=== PATIENT | female | born 1985 | race Caucasian/White ===

== ENCOUNTER 2021-04-10 13:09 | Outpatient (CLI) | payer BC, SELFPAY ==
--- NOTE | ~2021-04-10 | MM_ITS ---
EXAMINATION: MM diag chase implant LT w michael HISTORY: Lump in left breast TECHNIQUE: Implant and implant displaced ML, MLO and craniocaudal 3-D tomosynthesis images of the lef t breast were performed and synthetic 2-D images were generated. CAD analysis was submitted and inter preted. COMPARISON: None BREAST PARENCHYMAL COMPOSITION: The breasts are extremely dense, which lowers the sensitivity of mamm ography. FINDINGS: Status post left augmentation mammoplasty. There is dense fibroglandular stroma which may obscure masses. No architectural distortion malignant calcification, skin thickening or retraction is detected. IMPRESSION: 1. Dense stroma, which may obscure masses 2. Left breast ultrasound examination is recommended BI-RADS Category 0: Incomplete: Needs additional imaging evaluation. Reviewed, dictated and finalized at location A.
--- NOTE | ~2021-04-10 | XR_ITS ---
EXAMINATION: XR hip RT min 2V DATE: 04/10/2021 14:45 INDICATION: Right hip pain TECHNIQUE: Two views of right hip were obtained. COMPARISON: None. FINDINGS: Bone alignment is normal. There is no fracture. The soft tissues are unremarkable. IMPRESSION: 1. No acute osseous abnormality. Reviewed, dictated and finalized at location A.
--- NOTE | ~2021-04-10 | US_ITS ---
US breast LT complete DATE: 04/10/2021 15:09 INDICATION: Left breast lump TECHNIQUE: Complete ultrasound imaging of the left breast including all 4 quadrants and subareolar ar ea COMPARISON: 04/10/2021 left diagnostic implant mammogram FINDINGS: No suspicious solid lesion or suspicious shadowing of the left breast. There are multiple benign cysts: 12:00 1 cm from nipple: 26 x 6 x 21 mm sonolucency with through transmission and posterior enhancemen t consistent with simple cyst 12:00 5 cm from nipple: 28 x 9 x 23 mm sonolucency with through transmission and posterior enhancemen t consistent with simple cyst 2:00 6 cm from nipple at area of clinical complaint: 23 x 11 x 20 mm simple cyst 2:00 6 cm from nipple: Contiguous anterior 6 x 4.4 x 6 mm complicated cyst without internal vasculari ty IMPRESSION: BI-RADS Category 2: Benign findings Recommendation: Routine mammographic screening Reviewed, dictated and finalized at Location A. Reviewed, dictated and finalized at location A.
== END 2021-04-10 13:10 | disposition home or self-care (01) ==
PROVIDERS: PCP Internal Medicine; Visit Provider Internal Medicine
DX: N63.20 Unspecified lump in the left breast, unspecified quadrant (principal); M25.551 Pain in right hip
CPT/HCPCS: 73502; 76641; 77061; 77065; G0279

== ENCOUNTER 2021-08-21 12:28 | Outpatient (CLI) | payer BC, SELFPAY ==
--- NOTE | ~2021-08-21 | MMUS_ITS ---
EXAMINATION: MM diag chase implant RT w michael, US breast RT limited HISTORY: Palpable lump in the upper outer quadrant of the right breast TECHNIQUE: Craniocaudal, mediolateral, and mediolateral oblique 3-D tomosynthesis images with implant displacement of the right breast were performed and synthetic 2-D images were generated. Craniocaud al, mediolateral oblique, and mediolateral views of the right breast without implant displacement wer e obtained using full field digital mammography. CAD analysis was submitted and interpreted. High res olution limited right breast ultrasound was performed. COMPARISON: Left breast diagnostic mammogram dated 04/10/2021 BREAST PARENCHYMAL COMPOSITION: The breasts are extremely dense, which lowers the sensitivity of mamm ography. FINDINGS: MAMMOGRAPHIC FINDINGS: There is a 2.2 cm oval, obscured, low density mass in the middle third of the upper outer quadrant of the breast at the 10:00 location 6 cm from the nipple corresponding to the palpable abnormality of c oncern. ULTRASOUND: There is a 2.6 cm cyst at the 10:00 location 8 cm from the nipple. There is a 2.1 x 1.2 cm oval, circ umscribed, parallel, hypoechoic mass with posterior acoustic enhancement and no internal vascularity at the 10:00 location 6 cm from the nipple. IMPRESSION: 1. Right breast cyst in the upper outer quadrant of the breast corresponding to the palpable abnormal ity. Additional hypoechoic mass in the upper outer quadrant of the right breast is probably benign gi compa the bilateral nature of similar appearing masses seen when compared to diagnostic mammogram and u ltrasound from 04/10/2021. 2. Recommend 6 month follow-up right diagnostic mammogram and ultrasound. BI-RADS category 3, probably benign findings. Reviewed, dictated and finalized at location A. [employer] IMPRESSION: 1. Right breast cyst in the upper outer quadrant of the breast corresponding to the palpable abnormality. Additional hypoechoic mass in the upper outer quadra nt of the right breast is probably benign given the bilateral nature of similar appearing masses seen when compared to diagnostic mammogram and ultrasound fro m 04/10/2021. 2. Recommend 6 month follow-up right diagnostic mammogram and ultrasound. BI-RADS category 3, probably benign findings.
== END 2021-08-21 12:29 | disposition home or self-care (01) ==
LOC: ANHIMG 12:30
PROVIDERS: PCP Internal Medicine; Visit Provider Internal Medicine
DX: N63.10 Unspecified lump in the right breast, unspecified quadrant (principal); R92.8 Other abnormal and inconclusive findings on diagnostic imaging of breast
CPT/HCPCS: 76642; 77061; 77065; G0279

== ENCOUNTER 2022-03-22 12:15 | Outpatient (CLI) | payer BC, SELFPAY ==
--- NOTE | ~2022-03-22 | US_ITS ---
US retroperitoneal comp 03/22/2022 12:52 Procedure: Realtime transabdominal ultrasound of the kidneys and bladder. Indication: Acute urinary tract infection Comparison: No prior studies for comparison. Findings: Renal echotexture is normal bilaterally without contour deforming mass or renal calculus. T he right kidney measures 10.3 cm and left kidney measures 10 cm. There is mild right hydronephrosis. Bladder within normal limits. Impression: 1: Mild right hydronephrosis. Reviewed, dictated and finalized at location A. Impression: 1: Mild right hydronephrosis.
== END 2022-03-22 12:16 | disposition home or self-care (01) ==
LOC: ANHIMG 12:21
PROVIDERS: PCP Internal Medicine; Visit Provider Internal Medicine
DX: N39.0 Urinary tract infection, site not specified (principal); N13.30 Unspecified hydronephrosis
CPT/HCPCS: 76770